=== PATIENT | male | born 1995 | race African-American/Black ===

== ENCOUNTER 2019-04-07 10:26 | Emergency (ER) | payer OTHER ==
[~2019-04-07] VITALS: Ht 175.3 cm; Wt 73.2 kg
[2019-04-07] MEDS ORDERED: LIDOCAINE 1% MDV 20ML VIAL As Ordered ONE (11:50)
[2019-04-07] MEDS ORDERED: LIDOCAINE 1% MDV 20ML VIAL SC ONE (12:00)
[2019-04-07 12:25] VITALS: BP 136/74
== END 2019-04-07 12:28 | disposition home or self-care (01) ==
LOC: M ED 10:26
DX: S51.812A Laceration without foreign body of left forearm, initial encounter (principal); S41.111A Laceration without foreign body of right upper arm, initial encounter; W25.XXXA Contact with sharp glass, initial encounter; Y92.098 Other place in other non-institutional residence as the place of occurrence of the external cause

== ENCOUNTER 2019-04-17 13:45 | Emergency (ER) | payer OTHER ==
[~2019-04-17] VITALS: Ht 175.3 cm; Wt 79.4 kg
[2019-04-17 13:46] VITALS: BP 132/74
== END 2019-04-17 16:42 | disposition home or self-care (01) ==
LOC: M ED 13:45
DX: Z48.02 Encounter for removal of sutures (principal); F17.210 Nicotine dependence, cigarettes, uncomplicated